=== PATIENT | female | born 1965 | race African-American/Black ===

== ENCOUNTER 2022-07-20 22:21 | Emergency (ER) | payer OTHER ==
[2022-07-20 22:33] VITALS: RESP 18; TEMP 99.2; BMI 20.1
[2022-07-20] MEDS ORDERED: MIDAZOLAM HCL 5 MG/1 ML Single Dose Vial ONE (22:50)
[2022-07-20] MEDS ORDERED: MIDAZOLAM HCL 5 MG/1 ML Single Dose Vial IVPUSH ONE (23:02)
[2022-07-20 23:49] LABS: VENOUS BASE EXCESS -0.1 mmol/L (-2-2); VENOUS O2 SATURATION 83.2 % (70-80); VENOUS PCO2 55.4 mmHg (38-52); VENOUS PH 7.306 (7.310-7.410)
[2022-07-20 23:52] LABS: BASO % 0.6 % (0-2.0); EOS % 0.5 % (0-4.5); HEMOGLOBIN 10.4 GM/dL (10.7-15.3); LYMPH % 1.8 % (8-40); MCH 29.7 pg (25.7-33.7); MCHC 33.5 g/dl (32.0-36.0); MEAN CELL VOLUME 88.7 fl (80-96); MEAN PLT VOLUME 7.5 fl (7.5-11.1); MONO % 2.8 % (3.8-10.2); NEUT % 94.3 % (42.8-82.8); PLATELET COUNT 365 10^3/uL (134-434); RDW 14.3 % (11.6-15.6); WHITE BLOOD COUNT 17.9 K/mm3 (4.0-10.0)
[2022-07-21 00:07] LABS: METHADONE, UR NEGATIVE (NEGATIVE); URINE BARBITURATES NEGATIVE (NEGATIVE)
[2022-07-21 00:08] LABS: PHENCYCLIDINE,URINE NEGATIVE (NEGATIVE); URINE AMPHETAMINES NEGATIVE (NEGATIVE)
[2022-07-21 00:10] LABS: CALCIUM 8.9 mg/dL (8.5-10.1)
[2022-07-21 00:11] LABS: ALBUMIN 3.8 g/dl (3.4-5.0); BLOOD UREA NITROGEN 17.6 mg/dL (7-18)
[2022-07-21 00:14] LABS: CREATININE 0.9 mg/dL (0.55-1.3)
[2022-07-21 00:16] LABS: BILIRUBIN,TOTAL 0.3 mg/dL (0.2-1); TOT PROT 6.9 g/dl (6.4-8.2)
[2022-07-21 00:43] LABS: COCAINE, UR POSITIVE (NEGATIVE); OPIATES, URI POSITIVE (NEGATIVE); URINE BENZODIAZEPINES POSITIVE (NEGATIVE)
[2022-07-21 01:44] LABS: ANISOCYTOSIS 0; MACROCYTOSIS 0; OVALOCYTE 2+; TOXIC GRANULATION 2+
[2022-07-21 02:23] VITALS: BP 136/78; PULSE 92
== END 2022-07-21 02:22 | disposition home or self-care (01) ==
LOC: JER 22:21
PROC: 3E033GC Introduction of Other Therapeutic Substance into Peripheral Vein, Percutaneous Approach (ICD-10-PCS; principal; 2022-07-20)
DX: F19.920 Other psychoactive substance use, unspecified with intoxication, uncomplicated (principal); F14.20 Cocaine dependence, uncomplicated; Y90.8 Blood alcohol level of 240 mg/100 ml or more; Z20.822 Contact with and (suspected) exposure to COVID-19
CPT/HCPCS: 0241U-QW; 36415; 70450-TC; 71045-TC-FY; 71101-TC-RT-FY; 72125-TC; 80053; 80307; 82803; 84484; 85025; 93005; 93010; 99285-25

== ENCOUNTER 2022-11-25 18:37 | Inpatient (IN) | payer OTHER ==
[2022-11-25 19:01] VITALS: BMI 20.5
[2022-11-25] MEDS ORDERED: BENZONATATE 200 MG CAPSULE PO PRN (20:06)
[2022-11-25] MEDS ORDERED: NALOXONE HCL 0.4 MG/ML VIAL IM PRN (20:06)
[2022-11-25] MEDS ORDERED: BENZOCAINE/MENTHOL (CHLORASEPTIC ) LOZENGE MM PRN (20:06)
[2022-11-25] MEDS ORDERED: DICYCLOMINE HCL 10 MG CAPSULE PO PRN (20:06)
[2022-11-25] MEDS ORDERED: NALOXONE HCL (KLOXXADO) 8 MG SPRAY NS PRN (20:06)
[2022-11-25] MEDS ORDERED: LOPERAMIDE HCL 2 MG CAPSULE PO PRN (20:06)
[2022-11-25] MEDS ORDERED: ONDANSETRON *ODT* 4 MG TABLET SL PRN (20:06)
[2022-11-25] MEDS ORDERED: POLYETHYLENE GLYCOL (HEALTHYLAX) 3350 17 GM PACKET PO PRN (20:06)
[2022-11-25] MEDS ORDERED: IBUPROFEN 400 MG TABLET (FP) PO PRN (20:06)
[2022-11-25] MEDS ORDERED: ACETAMINOPHEN 325 MG TABLET (FP) PO PRN (20:06)
[2022-11-25] MEDS ORDERED: MAG HYDROX/AL HYDROX/SIMETH 30 ML UNIT-DOSE CUP PO PRN (20:06)
[2022-11-25] MEDS ORDERED: MAGNESIUM HYDROX 2400MG/30ML ORAL SUSPENSION 30 ML CUP PO PRN (20:06)
[2022-11-25] MEDS ORDERED: guaiFENesin 600 MG TABLET.ER (FP) PO PRN (20:06)
[2022-11-25] MEDS ORDERED: BISMUTH SUBSALICYLATE 524 MG/30 ML PO PRN (20:06)
[2022-11-25] MEDS: MELATONIN 5 MG TABLETS PO SCH (22:35)
[2022-11-25] MEDS: THIAMINE HCL 100 MG TABLET (FP) PO SCH (22:35)
[2022-11-26] MEDS ORDERED: methaDONE HCL 10 MG TABLET (FOR DETOX USE ONLY) PO ONE (10:00)
[2022-11-26] MEDS ORDERED: amLODIPine BESYLATE 5 MG TABLET (FP) PO SCH (10:00)
[2022-11-26] MEDS: PRENATAL VITAMINS W/ FOLIC ACID TABLET (FP) PO SCH (10:10)
[2022-11-26] MEDS: hydrOXYzine PAMOATE 25 MG CAPSULE (FP) PO PRN ×2 (10:11→22:07)
[2022-11-26] MEDS: METHOCARBAMOL 500 MG TABLET PO PRN (10:11)
[2022-11-26] MEDS: ALBUTEROL SO4 HFA INHALER IH PRN ×2 (10:13→22:07)
[2022-11-26 10:28] LABS: POTASSIUM 4.3 mmol/L (3.5-5.1)
[2022-11-26 10:29] LABS: HEMATOCRIT 36.9 % (32.4-45.2); HEMOGLOBIN 11.7 GM/dL (10.7-15.3); MCH 28.9 pg (25.7-33.7); MCHC 31.8 g/dl (32.0-36.0); MEAN CELL VOLUME 90.9 fl (80-96); MEAN PLT VOLUME 7.8 fl (7.5-11.1); PLATELET COUNT 449 10^3/uL (134-434); RBC 4.06 M/mm3 (3.60-5.2); RDW 14.6 % (11.6-15.6)
[2022-11-26 10:34] LABS: ALBUMIN 3.5 g/dl (3.4-5.0); CALCIUM 8.7 mg/dL (8.5-10.1)
[2022-11-26 10:35] LABS: BLOOD UREA NITROGEN 13.4 mg/dL (7-18)
[2022-11-26 10:37] LABS: CREATININE 0.8 mg/dL (0.55-1.3)
[2022-11-26 10:39] LABS: BILIRUBIN,TOTAL 0.1 mg/dL (0.2-1); TOT PROT 6.6 g/dl (6.4-8.2)
[2022-11-26] MEDS: THIAMINE HCL 100 MG TABLET (FP) PO SCH (22:06)
[2022-11-26] MEDS: MELATONIN 5 MG TABLETS PO SCH (22:06)
[2022-11-27] MEDS: PRENATAL VITAMINS W/ FOLIC ACID TABLET (FP) PO SCH (10:12)
[2022-11-27] MEDS: hydrOXYzine PAMOATE 25 MG CAPSULE (FP) PO PRN ×2 (10:13→22:17)
[2022-11-27] MEDS: amLODIPine BESYLATE 10 MG TABLET (FP) PO SCH (10:13)
[2022-11-27] MEDS: METHOCARBAMOL 500 MG TABLET PO PRN (10:13)
[2022-11-27] MEDS: ALBUTEROL SO4 HFA INHALER IH PRN (10:14)
[2022-11-27] MEDS: ASPIRIN 81 MG CHEWABLE TABLETS PO SCH (10:17)
[2022-11-27] MEDS: THIAMINE HCL 100 MG TABLET (FP) PO SCH (22:16)
[2022-11-27] MEDS: MELATONIN 5 MG TABLETS PO SCH (22:16)
[2022-11-27] MEDS: IBUPROFEN 600 MG TABLET (FP) PO PRN (22:17)
[2022-11-28] MEDS ORDERED: methaDONE HCL 10 MG TABLET (FOR DETOX USE ONLY) PO ONE (10:00)
[2022-11-28] MEDS: ASPIRIN 81 MG CHEWABLE TABLETS PO SCH (10:33)
[2022-11-28] MEDS: PRENATAL VITAMINS W/ FOLIC ACID TABLET (FP) PO SCH (10:33)
[2022-11-28] MEDS: amLODIPine BESYLATE 10 MG TABLET (FP) PO SCH (10:33)
[2022-11-28] MEDS: IBUPROFEN 600 MG TABLET (FP) PO PRN (10:35)
[2022-11-28] MEDS: METHOCARBAMOL 500 MG TABLET PO PRN (10:35)
[2022-11-28] MEDS: hydrOXYzine PAMOATE 25 MG CAPSULE (FP) PO PRN (22:02)
[2022-11-28] MEDS: THIAMINE HCL 100 MG TABLET (FP) PO SCH (22:02)
[2022-11-28] MEDS: MELATONIN 5 MG TABLETS PO SCH (22:02)
[2022-11-29 07:00] VITALS: RESP 18
[2022-11-29 09:12] VITALS: BP 118/74; PULSE 80; TEMP 97.1
[2022-11-29 16:04] LABS: HIV INTERPRETATION NEGATIVE (NEGATIVE)
== END 2022-11-29 09:55 | disposition home or self-care (01) | DRG 773 ==
LOC: YASAS 18:37 → Y6N 20:21
PROVIDERS: ADMIT Allergy & Immunology; ATTEND Surgery
PROC: HZ2ZZZZ Detoxification Services for Substance Abuse Treatment (ICD-10-PCS; principal; 2022-11-25)
DX: F11.23 Opioid dependence with withdrawal (principal); F10.20 Alcohol dependence, uncomplicated; F14.20 Cocaine dependence, uncomplicated; F12.20 Cannabis dependence, uncomplicated; F17.210 Nicotine dependence, cigarettes, uncomplicated; I10 Essential (primary) hypertension; J45.909 Unspecified asthma, uncomplicated; M54.50 Low back pain, unspecified; G89.29 Other chronic pain
CPT/HCPCS: 36415; 73630-TC-LT; 80053; 81025; 85027; 86780; 87389; 87635

== ENCOUNTER 2023-04-27 08:34 | Emergency (ER) | payer SELFPAY ==
[2023-04-27 08:37] VITALS: BP 156/85; PULSE 119; RESP 18; TEMP 97.6; BMI 23.8
[2023-04-27] MEDS ORDERED: ACETAMINOPHEN INJECTION 100 ML IVPB ONE (09:32)
[2023-04-27] MEDS ORDERED: ONDANSETRON 4 MG/2 ML VIAL ONE (09:32)
[2023-04-27] MEDS: SODIUM CHLORIDE 0.9% 500 ML INFUS.BAG IV ONE (09:49)
[2023-04-27] MEDS: ACETAMINOPHEN 1000 MG/100 ML BAG IVPB ONE (09:49)
[2023-04-27] MEDS: ONDANSETRON 4 MG/2 ML VIAL IVPUSH ONE (09:49)
[2023-04-27 09:57] LABS: BASO % 0.6 % (0-2.0); EOS % 0.7 % (0-4.5); HEMATOCRIT 37.1 % (32.4-45.2); HEMOGLOBIN 11.9 GM/dL (10.7-15.3); LYMPH % 10.1 % (8-40); MCH 29.4 pg (25.7-33.7); MEAN CELL VOLUME 91.7 fl (80-96); MEAN PLT VOLUME 6.9 fl (7.5-11.1); MONO % 3.8 % (3.8-10.2); NEUT % 84.8 % (42.8-82.8); PLATELET COUNT 379 10^3/uL (134-434); RBC 4.05 M/mm3 (3.60-5.2); RDW 14.3 % (11.6-15.6); WHITE BLOOD COUNT 18.5 K/mm3 (4.0-10.0)
[2023-04-27 10:04] LABS: POTASSIUM 4.1 mmol/L (3.5-5.1)
[2023-04-27 10:07] LABS: CALCIUM 8.7 mg/dL (8.5-10.1)
[2023-04-27 10:08] LABS: ALBUMIN 3.7 g/dl (3.4-5.0); BLOOD UREA NITROGEN 14.5 mg/dL (7-18)
[2023-04-27 10:12] LABS: BILIRUBIN,TOTAL 0.2 mg/dL (0.2-1); TOT PROT 6.9 g/dl (6.4-8.2)
[2023-04-27 10:15] LABS: CREATININE 0.9 mg/dL (0.55-1.3)
[2023-04-27] MEDS ORDERED: chlordiazePOXIDE HCL 25 MG CAPSULE ONE (10:25)
[2023-04-27] MEDS ORDERED: FAMOTIDINE 20 MG/50 ML IVPB 20 MG/50 ML MG IVPB ONE (10:25)
[2023-04-27] MEDS: FAMOTIDINE 20 MG/50 ML IVPB 20 MG/50 ML MG IVPB ONE (10:29)
[2023-04-27] MEDS: chlordiazePOXIDE HCL 25 MG CAPSULE PO ONE (10:29)
== END 2023-04-27 11:40 | disposition left against medical advice (07) ==
LOC: JER 08:34
PROC: 3E033GC Introduction of Other Therapeutic Substance into Peripheral Vein, Percutaneous Approach (ICD-10-PCS; principal; 2023-04-27)
PROC: 3E033GC Introduction of Other Therapeutic Substance into Peripheral Vein, Percutaneous Approach (ICD-10-PCS; 2023-04-27)
PROC: 3E033GC Introduction of Other Therapeutic Substance into Peripheral Vein, Percutaneous Approach (ICD-10-PCS; 2023-04-27)
DX: R10.11 Right upper quadrant pain (principal); R11.2 Nausea with vomiting, unspecified; F19.10 Other psychoactive substance abuse, uncomplicated
CPT/HCPCS: 36415; 76705-TC; 80053; 83690; 84484; 85025; 93005; 93010; 99285-25; J0131

== ENCOUNTER 2023-07-31 23:41 | Inpatient (IN) | payer OTHER ==
[2023-08-01 01:42] VITALS: BMI 21.9
[2023-08-01] MEDS ORDERED: NALOXONE HCL (KLOXXADO) 8 MG SPRAY NS PRN (02:31)
[2023-08-01] MEDS ORDERED: NICOTINE POLACRILEX 2 MG GUM BUC PRN (02:31)
[2023-08-01] MEDS ORDERED: ACETAMINOPHEN 325 MG TABLET (FP) PO PRN (02:31)
[2023-08-01] MEDS ORDERED: BENZOCAINE/MENTHOL (CHLORASEPTIC ) LOZENGE MM PRN (02:31)
[2023-08-01] MEDS ORDERED: MAGNESIUM HYDROX 2400MG/30ML ORAL SUSPENSION 30 ML CUP PO PRN (02:31)
[2023-08-01] MEDS ORDERED: ONDANSETRON *ODT* 4 MG TABLET SL PRN (02:31)
[2023-08-01] MEDS ORDERED: IBUPROFEN 400 MG TABLET (FP) PO PRN (02:31)
[2023-08-01] MEDS ORDERED: POLYETHYLENE GLYCOL (HEALTHYLAX) 3350 17 GM PACKET PO PRN (02:31)
[2023-08-01] MEDS ORDERED: MAG HYDROX/AL HYDROX/SIMETH 30 ML UNIT-DOSE CUP PO PRN (02:31)
[2023-08-01] MEDS ORDERED: guaiFENesin 600 MG TABLET.ER (FP) PO PRN (02:31)
[2023-08-01] MEDS ORDERED: DICYCLOMINE HCL 10 MG CAPSULE PO PRN (02:31)
[2023-08-01] MEDS ORDERED: IBUPROFEN 600 MG TABLET (FP) PO PRN (02:31)
[2023-08-01] MEDS ORDERED: LOPERAMIDE HCL 2 MG CAPSULE PO PRN (02:31)
[2023-08-01] MEDS ORDERED: NALOXONE HCL 0.4 MG/ML VIAL IM PRN (02:31)
[2023-08-01] MEDS ORDERED: BISMUTH SUBSALICYLATE 524 MG/30 ML PO PRN (02:31)
[2023-08-01] MEDS ORDERED: BENZONATATE 200 MG CAPSULE PO PRN (02:31)
[2023-08-01] MEDS ORDERED: methaDONE HCL 10 MG TABLET (FOR DETOX USE ONLY) ONE (02:57)
[2023-08-01] MEDS: methaDONE HCL 10 MG TABLET (FOR DETOX USE ONLY) PO ONE (03:00)
[2023-08-01] MEDS: METHOCARBAMOL 500 MG TABLET PO PRN (05:45)
[2023-08-01] MEDS: hydrOXYzine PAMOATE 25 MG CAPSULE (FP) PO PRN (05:45)
[2023-08-01] MEDS: PRENATAL VITAMINS W/ FOLIC ACID TABLET (FP) PO SCH (09:53)
[2023-08-01] MEDS: NICOTINE 14 MG/24 HOURS TOPICAL PATCH TD SCH (09:53)
[2023-08-01 12:21] LABS: HEMATOCRIT 29.9 % (32.4-45.2); HEMOGLOBIN 9.7 GM/dL (10.7-15.3); MCH 29.6 pg (25.7-33.7); MCHC 32.4 g/dl (32.0-36.0); MEAN CELL VOLUME 91.4 fl (80-96); MEAN PLT VOLUME 7.2 fl (7.5-11.1); PLATELET COUNT 414 10^3/uL (134-434); RBC 3.27 M/mm3 (3.60-5.2); RDW 14.7 % (11.6-15.6); WHITE BLOOD COUNT 9.8 K/mm3 (4.0-10.0)
[2023-08-01 12:52] LABS: CHLORIDE 104 mmol/L (98-107); POTASSIUM 3.8 mmol/L (3.5-5.1); SODIUM 138 mmol/L (136-145)
[2023-08-01 12:56] LABS: CALCIUM 8.4 mg/dL (8.5-10.1); GLUCOSE,RANDOM 76 mg/dL (74-106)
[2023-08-01 12:57] LABS: ALBUMIN 3.3 g/dl (3.4-5.0); ANION GAP 6 mmol/L (4-13); BLOOD UREA NITROGEN 14.1 mg/dL (7-18); CO2 28 mmol/L (21-32)
[2023-08-01 12:58] LABS: CREATININE 0.9 mg/dL (0.55-1.3); SGPT/ALT 36 U/L (13-61)
[2023-08-01 12:59] LABS: SGOT/AST 49 U/L (15-37)
[2023-08-01 13:00] LABS: ALK PHOS 65 U/L (45-117); BILIRUBIN,TOTAL 0.3 mg/dL (0.2-1); TOT PROT 6.2 g/dl (6.4-8.2)
[2023-08-01] MEDS: cloNIDine HCL 0.1 MG TABLET PO PRN (13:27)
[2023-08-01] MEDS: MELATONIN 5 MG TABLETS PO SCH (21:12)
[2023-08-01] MEDS: THIAMINE 100 MG TABLET PO SCH (21:12)
[2023-08-01] MEDS ORDERED: MELATONIN 5 MG TABLETS PO SCH (22:00)
[2023-08-02] MEDS: amLODIPine BESYLATE 5 MG TABLET (FP) PO SCH (09:29)
[2023-08-03] MEDS: methaDONE HCL 10 MG TABLET (FOR DETOX USE ONLY) PO ONE (09:09)
[2023-08-03] MEDS: BUDESONIDE/FORMETEROL FUMARATE 160/4.5 mcg INHALER IH SCH (22:58)
[2023-08-03] MEDS: ALBUTEROL SO4 HFA INHALER IH PRN (22:58)
[2023-08-05] MEDS: methaDONE HCL 10 MG TABLET (FOR DETOX USE ONLY) PO ONE (10:18)
[2023-08-05 15:30] LABS: IRON SERUM 75 ug/dL (50-175)
[2023-08-05 15:31] LABS: TOTAL IRON BINDING CAPACITY 360 ug/dL (250-450)
[2023-08-05 18:05] VITALS: RESP 16
[2023-08-06 09:28] VITALS: BP 112/80; PULSE 78; TEMP 97.5
== END 2023-08-06 09:58 | disposition home or self-care (01) | DRG 773 ==
LOC: YASAS 23:41 → Y6N 08-01 02:36
PROVIDERS: ADMIT Allergy & Immunology; ATTEND Allergy & Immunology
PROC: HZ2ZZZZ Detoxification Services for Substance Abuse Treatment (ICD-10-PCS; principal; 2023-08-01)
DX: F11.23 Opioid dependence with withdrawal (principal); F14.20 Cocaine dependence, uncomplicated; F17.210 Nicotine dependence, cigarettes, uncomplicated; F19.282 Other psychoactive substance dependence with psychoactive substance-induced sleep disorder; F18.24 Inhalant dependence with inhalant-induced mood disorder; F32.9 Major depressive disorder, single episode, unspecified; D64.89 Other specified anemias; I10 Essential (primary) hypertension; J45.909 Unspecified asthma, uncomplicated
CPT/HCPCS: 36415; 80053; 80305; 80307; 81025; 82607; 82728; 82747; 83540; 83550; 85014; 85027; 86780; 93005; 93010